=== PATIENT | female | born 1975 ===

== ENCOUNTER 2022-10-11 06:36 | Emergency (ER) | payer OTHER ==
[~2022-10-11] VITALS: Ht 152.4 cm; Wt 58.1 kg
[~2022-10-11 06:36] MED LIST: OXYC1TAB9 PO
== END 2022-10-11 13:40 ==
LOC: ER 06:36
DX: B34.9 Viral infection, unspecified (principal); Z88.0 Allergy status to penicillin; Z88.2 Allergy status to sulfonamides; Z20.822 Contact with and (suspected) exposure to COVID-19